=== PATIENT | female | born 1970 | race Caucasian/White ===

== ENCOUNTER 2023-09-17 01:06 | Inpatient (IN) | payer MEDICAID ==
[~2023-09-17] VITALS: Ht 170.2 cm; Wt 99.7 kg
[2023-09-17 01:32] LABS: BASOPHILS # (AUTO) 0.1 X10'3 (0-0.2); BASOPHILS % (AUTO) 0.3 % (0-1); EOSINOPHILS # (AUTO) 0.1 X10'3 (0-0.9); EOSINOPHILS % (AUTO) 0.3 % (0-6); HEMATOCRIT 41.7 % (35.0-45.0); HEMOGLOBIN 14.1 g/dl (12.0-16.0); LYMPHOCYTES # (AUTO) 3.8 X10'3 (1.1-4.8); LYMPHOCYTES % (AUTO) 21.7 % (21-51); MEAN CORPUSCULAR HEMOGLOBIN 28.3 PG (27.0-31.0); MEAN CORPUSCULAR HGB CONC 33.8 g/dL (33.0-36.5); MEAN CORPUSCULAR VOLUME 83.8 FL (78-98); MEAN PLATELET VOLUME 7.5 FL (7.4-10.4); MONOCYTES # (AUTO) 1.2 X10'3 (0-0.9); MONOCYTES % (AUTO) 6.7 % (2-12); NEUTROPHILS # (AUTO) 12.4 X10'3 (1.8-7.7); PLATELET COUNT 402 X10'3 (140-440); RED BLOOD COUNT 4.97 X10'6 (4.20-5.60); RED CELL DISTRIBUTION WIDTH 14.6 % (11.5-14.5); WHITE BLOOD COUNT 17.5 X10'3 (4.5-11.0)
[2023-09-17 01:43] LABS: APTT 32 SECONDS (22-32); PROTHROMBIN TIME 10.9 SECONDS (9.0-12.0)
[2023-09-17 01:51] LABS: ALBUMIN 3.7 G/DL (3.4-5.0); ANION GAP 12 (8-16); BLOOD UREA NITROGEN 7 MG/DL (7-18); BUN/CREATININE RATIO 9.5 (10.0-20.0); CALCIUM 8.9 MG/DL (8.5-10.1); CHLORIDE 102 MMOL/L (99-107); CREATININE 0.74 MG/DL (0.40-0.90); GLUCOSE 125 MG/DL (70-104); POTASSIUM 3.4 MMOL/L (3.5-5.1); PRO BRAIN NATRIURETIC PEPTIDE 3690 PG/ML (0-125); SODIUM 137 MMOL/L (135-145); TOTAL CARBON DIOXIDE 23.4 MMOL/L (24-32); eCRCL 86 ML/MIN; eGFR 82 ML/MIN
[2023-09-17] MEDS ORDERED: mag hydrox/Alum hydrox/simeth 30ml oral suspension PO PRN (02:30)
[2023-09-17] MEDS ORDERED: potassium Cl 40MEQ/1/2NS 520ml 520 ML IV PRN ×2 (02:30→13:55)
[2023-09-17] MEDS ORDERED: magnesium 4gm in 100ml NS 100 ML IV PRN ×2 (02:30→13:55)
[2023-09-17] MEDS ORDERED: morphine 2 MG/ML inj. syringe IV PRN (02:30)
[2023-09-17] MEDS ORDERED: potassium Cl 20 mEq SR tablet PO PRN ×2 (02:30)
[2023-09-17] MEDS ORDERED: magnesium Cl slow-release 64mg tablet PO PRN (02:30)
[2023-09-17] MEDS ORDERED: magnesium hydroxide 30ml (MOM) UD suspension PO PRN (02:30)
[2023-09-17] MEDS ORDERED: magnesium 2GM in 50ml NS 50 ML IV PRN ×2 (02:30→13:55)
[2023-09-17] MEDS: heparin 10,000 units/1 ML INJ IV ONE (02:40)
[2023-09-17] MEDS: heparin 25,000 UNIT/250ml bag 250 ML IV PRN (02:41)
[2023-09-17] MEDS: MESSAGE TO NURSING IV ONE ×4 (02:42→21:55)
[2023-09-17 02:47] LABS: HEMOGLOBIN A1C 5.5 % (4.5-6.2)
[2023-09-17] MEDS ORDERED: EST1T PO (05:47)
[2023-09-17] MEDS ORDERED: ERGO500093 PO (05:47)
[2023-09-17] MEDS ORDERED: PROG100C11 PO (05:47)
[2023-09-17] MEDS ORDERED: CALC600T35 (05:47)
[2023-09-17] MEDS ORDERED: MONT-40 PO (05:47)
[2023-09-17] MEDS ORDERED: ADAL40PE5 SQ (05:47)
[2023-09-17] MEDS ORDERED: BUDE10.2 PO (05:47)
[2023-09-17] MEDS ORDERED: LEVO5TAB13 (05:47)
[2023-09-17] MEDS ORDERED: ALBU10.7 (05:47)
[2023-09-17] MEDS ORDERED: PHEN15CA6 PO (05:47)
[2023-09-17] MEDS ORDERED: NAPR-1166 (05:47)
[2023-09-17] MEDS ORDERED: ATOR20TA66 PO (05:47)
[2023-09-17] MEDS ORDERED: FLUT15.87 (05:47)
[2023-09-17] MEDS: K and/or MAG REPLACEMENT MC SCH (08:00)
[2023-09-17] MEDS: aspirin 81mg tab.chew PO ONE (09:54)
[2023-09-17] MEDS: heparin 10,000 units/1 ML INJ IV PRN (09:54)
[2023-09-17] MEDS: carvedilol 6.25mg tablet PO SCH (09:54)
[2023-09-17] MEDS: atorvastatin 20mg tablet PO SCH (09:54)
[2023-09-17] MEDS: pantoprazole 40 MG vial IV SCH (09:59)
[2023-09-17] MEDS: montelukast 10mg tablet PO SCH (09:59)
[2023-09-17] MEDS ORDERED: ipratropium/albuterol 3ml nebule NEB PRN (10:20)
[2023-09-17] MEDS ORDERED: BUDESONIDE 180 MCG AER.POW.BA INH PRN (10:20)
[2023-09-17] MEDS ORDERED: LEVO5TAB13 PO (10:20)
[2023-09-17] MEDS ORDERED: ALBU8HFA INH (10:23)
[2023-09-17 11:00] VITALS: BP 139/70; PULSE 91; RESP 18; TEMP 98.1; O2SAT 99
[2023-09-17] MEDS: albuterol 2.5 MG/3 ML nebule NEB PRN (11:55)
[2023-09-17 11:57] VITALS: PULSE 73; RESP 17; O2SAT 100
[2023-09-17 12:04] VITALS: PULSE 78; RESP 16
[2023-09-17] MEDS: estradiol 1mg tablet PO SCH (13:03)
[2023-09-17] MEDS ORDERED: potassium CL 10mEq/100ml bag 100 ML IV PRN (13:55)
[2023-09-17] MEDS ORDERED: potassium Cl 40MEQ/270ML bag 250 ML IV PRN (13:55)
[2023-09-17] MEDS ORDERED: potassium Cl 20mEq/100mL bag 100 ML IV PRN (13:55)
[2023-09-17 15:00] VITALS: BP 135/70; PULSE 73; RESP 16; TEMP 97.5; O2SAT 99
[2023-09-17] MEDS: ondansetron/PF 4mg/2ml inj IV PRN (16:38)
[2023-09-17] MEDS: nitroGLYCERIN 0.4mg/hour patch TD SCH (16:42)
[2023-09-17] MEDS ORDERED: HYDR-3973 PO (17:46)
[2023-09-17 18:00] VITALS: BP 119/81; PULSE 101; RESP 20; TEMP 97.6; O2SAT 99
[2023-09-17] MEDS: Symbicort 160-4.5 Mcg Inhaler PO SCH (20:00)
[2023-09-17] MEDS: acetaminophen 325mg tablet PO PRN (20:46)
[2023-09-17] MEDS: potassium Cl 20 mEq SR tablet PO PRN (20:47)
[2023-09-17 22:00] VITALS: BP 125/86; PULSE 94; RESP 18; RESP 20; TEMP 96.7; O2SAT 99
[2023-09-18] VITALS (16 sets, daily range): BP systolic 98–141; BP diastolic 54–92; PULSE 74–97; RESP 12–22; TEMP 97.3–98.5; O2SAT 96–100
[2023-09-18 06:45] LABS: BASOPHILS # (AUTO) 0.2 X10'3 (0-0.2); BASOPHILS % (AUTO) 1.2 % (0-1); EOSINOPHILS # (AUTO) 0.3 X10'3 (0-0.9); EOSINOPHILS % (AUTO) 2.4 % (0-6); HEMATOCRIT 44.4 % (35.0-45.0); HEMOGLOBIN 14.7 g/dl (12.0-16.0); LYMPHOCYTES # (AUTO) 4.5 X10'3 (1.1-4.8); LYMPHOCYTES % (AUTO) 34.9 % (21-51); MEAN CORPUSCULAR HEMOGLOBIN 28.1 PG (27.0-31.0); MEAN CORPUSCULAR HGB CONC 33.1 g/dL (33.0-36.5); MEAN CORPUSCULAR VOLUME 84.9 FL (78-98); MEAN PLATELET VOLUME 8.7 FL (7.4-10.4); MONOCYTES # (AUTO) 1.2 X10'3 (0-0.9); MONOCYTES % (AUTO) 9.5 % (2-12); NEUTROPHILS # (AUTO) 6.8 X10'3 (1.8-7.7); PLATELET COUNT 423 X10'3 (140-440); RED BLOOD COUNT 5.23 X10'6 (4.20-5.60); RED CELL DISTRIBUTION WIDTH 14.9 % (11.5-14.5)
[2023-09-18 07:05] LABS: ALBUMIN 3.8 G/DL (3.4-5.0); ANION GAP 12 (8-16); BLOOD UREA NITROGEN 11 MG/DL (7-18); BUN/CREATININE RATIO 15.3 (10.0-20.0); CALCIUM 9.1 MG/DL (8.5-10.1); CHLORIDE 102 MMOL/L (99-107); CHOL/HDL RATIO 2.6 (0.00-4.99); CHOLESTEROL 191 MG/DL (0-200); CREATININE 0.72 MG/DL (0.40-0.90); GLUCOSE 97 MG/DL (70-104); HDL CHOLESTEROL 73 MG/DL (35-60); LDL CHOLESTEROL 93 MG/DL (50-100); POTASSIUM 3.9 MMOL/L (3.5-5.1); SODIUM 136 MMOL/L (135-145); TOTAL CARBON DIOXIDE 21.8 MMOL/L (24-32); TRIGLYCERIDES 155 MG/DL (20-135); eCRCL 88 ML/MIN; eGFR 85 ML/MIN
[2023-09-18] MEDS: MESSAGE TO NURSING IV ONE ×3 (07:45→15:52)
[2023-09-18] MEDS: LEVOCETIRIZINE DIHYDROCHLORIDE 5 MG PO SCH (08:00)
[2023-09-18] MEDS: progesterone, micronized 100mg capsule PO SCH (08:23)
[2023-09-18] MEDS: heparin 10,000 units/1 ML INJ IV PRN (08:34)
[2023-09-18] MEDS ORDERED: aminophylline inj. 0 ML IV ONE (09:27)
[2023-09-18] MEDS: regadenoson 0.4mg/5ml syringe IV PRN (09:29)
[2023-09-18] MEDS ORDERED: metoprolol tartrate 1mg/ml inj IV PRN (12:15)
[2023-09-18] MEDS ORDERED: nitroGLYCERIN 0.4mg SUBLingual tab SL PRN (12:15)
[2023-09-18] MEDS ORDERED: aminophylline 250mg/10ml inj. IV PRN (12:15)
[2023-09-18] MEDS ORDERED: MESSAGE TO NURSING IV ONE (15:20)
[2023-09-18] MEDS ORDERED: nitroGLYCERIN 0.4mg/hour patch TD SCH (16:00)
[2023-09-19] VITALS (21 sets, daily range): BP systolic 100–142; BP diastolic 49–81; PULSE 68–92; RESP 11–22; TEMP 96.6–97.7; O2SAT 95–99
[2023-09-19 06:00] LABS: BASOPHILS # (AUTO) 0.1 X10'3 (0-0.2); BASOPHILS % (AUTO) 1.1 % (0-1); EOSINOPHILS # (AUTO) 0.6 X10'3 (0-0.9); EOSINOPHILS % (AUTO) 7.3 % (0-6); HEMATOCRIT 43.4 % (35.0-45.0); HEMOGLOBIN 14.2 g/dl (12.0-16.0); LYMPHOCYTES # (AUTO) 3.1 X10'3 (1.1-4.8); LYMPHOCYTES % (AUTO) 36.2 % (21-51); MEAN CORPUSCULAR HEMOGLOBIN 28.1 PG (27.0-31.0); MEAN CORPUSCULAR HGB CONC 32.8 g/dL (33.0-36.5); MEAN CORPUSCULAR VOLUME 85.7 FL (78-98); MONOCYTES # (AUTO) 0.9 X10'3 (0-0.9); NEUTROPHILS # (AUTO) 3.8 X10'3 (1.8-7.7); NEUTROPHILS % (AUTO) 44.4 % (42-75); PLATELET COUNT 397 X10'3 (140-440); RED BLOOD COUNT 5.06 X10'6 (4.20-5.60); RED CELL DISTRIBUTION WIDTH 14.7 % (11.5-14.5); WHITE BLOOD COUNT 8.5 X10'3 (4.5-11.0)
[2023-09-19 06:10] LABS: ALBUMIN 3.3 G/DL (3.4-5.0); ANION GAP 10 (8-16); BLOOD UREA NITROGEN 10 MG/DL (7-18); BUN/CREATININE RATIO 13.2 (10.0-20.0); CHLORIDE 106 MMOL/L (99-107); CREATININE 0.76 MG/DL (0.40-0.90); GLUCOSE 98 MG/DL (70-104); POTASSIUM 3.8 MMOL/L (3.5-5.1); SODIUM 139 MMOL/L (135-145); TOTAL CARBON DIOXIDE 23.2 MMOL/L (24-32); eCRCL 83 ML/MIN; eGFR 80 ML/MIN
[2023-09-19] MEDS ORDERED: LIDOcaine 2% Viscous 15ml cup ONE (09:58)
[2023-09-19] MEDS ORDERED: fentaNYL/PF 50MCG/1 ML 2ML syringe ONE (11:08)
[2023-09-19] MEDS ORDERED: MIDAZolam 1 MG/ML 5ML VIAL ONE (11:08)
[2023-09-19] MEDS: pantoprazole 40 MG vial IV SCH (20:49)
[2023-09-20 02:00] VITALS: BP 113/60; PULSE 65; RESP 16; TEMP 97.1; O2SAT 98
[2023-09-20 06:31] LABS: BASOPHILS # (AUTO) 0.1 X10'3 (0-0.2); EOSINOPHILS # (AUTO) 0.6 X10'3 (0-0.9); HEMOGLOBIN 14.2 g/dl (12.0-16.0); LYMPHOCYTES # (AUTO) 3.3 X10'3 (1.1-4.8); MEAN PLATELET VOLUME 7.9 FL (7.4-10.4); NEUTROPHILS # (AUTO) 3.8 X10'3 (1.8-7.7)
[2023-09-20 06:33] LABS: EOSINOPHILS % (AUTO) 6.7 % (0-6); HEMATOCRIT 42.3 % (35.0-45.0); LYMPHOCYTES % (AUTO) 38.1 % (21-51); MEAN CORPUSCULAR HEMOGLOBIN 28.4 PG (27.0-31.0); MEAN CORPUSCULAR HGB CONC 33.5 g/dL (33.0-36.5); MEAN CORPUSCULAR VOLUME 84.8 FL (78-98); MONOCYTES # (AUTO) 0.9 X10'3 (0-0.9); MONOCYTES % (AUTO) 10.6 % (2-12); NEUTROPHILS % (AUTO) 43.6 % (42-75); PLATELET COUNT 385 X10'3 (140-440); RED BLOOD COUNT 4.98 X10'6 (4.20-5.60); RED CELL DISTRIBUTION WIDTH 14.9 % (11.5-14.5); WHITE BLOOD COUNT 8.7 X10'3 (4.5-11.0)
[2023-09-20 06:44] LABS: ALBUMIN 3.3 G/DL (3.4-5.0); ANION GAP 9 (8-16); BLOOD UREA NITROGEN 9 MG/DL (7-18); BUN/CREATININE RATIO 13.2 (10.0-20.0); CALCIUM 8.9 MG/DL (8.5-10.1); CHLORIDE 107 MMOL/L (99-107); CREATININE 0.68 MG/DL (0.40-0.90); GLUCOSE 98 MG/DL (70-104); POTASSIUM 3.9 MMOL/L (3.5-5.1); SODIUM 139 MMOL/L (135-145); TOTAL CARBON DIOXIDE 23.1 MMOL/L (24-32); eCRCL 93 ML/MIN; eGFR > 90 ML/MIN
[2023-09-20 07:21] VITALS: BP 123/71; PULSE 68; RESP 16; TEMP 98.6; O2SAT 98
[2023-09-20 08:00] VITALS: RESP 16; O2SAT 98
[2023-09-20 11:13] VITALS: BP 137/90; PULSE 82; RESP 16; TEMP 98; O2SAT 100
[2023-09-20 11:16] VITALS: PULSE 89; RESP 17; O2SAT 97
[2023-09-20] MEDS ORDERED: CARV6.253 PO (11:46)
[2023-09-20] MEDS ORDERED: PANT-47 PO (11:47)
[2023-09-20] MEDS ORDERED: ASPI-1265 PO (11:47)
== END 2023-09-20 15:40 | disposition home or self-care (01) | DRG 241 ==
LOC: ER 01:07 → ED HOLD 02:29 → PCU 3S 10:33
PROVIDERS: ADMIT Surgery Surgical Critical Care; ATTEND Family Medicine
PROC: 4A02XM4 Measurement of Cardiac Total Activity, External Approach (ICD-10-PCS; 2023-09-18)
PROC: 3E033HZ Introduction of Radioactive Substance into Peripheral Vein, Percutaneous Approach (ICD-10-PCS; 2023-09-18)
PROC: 0DB58ZX Excision of Esophagus, Via Natural or Artificial Opening Endoscopic, Diagnostic (ICD-10-PCS; principal; 2023-09-19)
PROC: 0DB68ZX Excision of Stomach, Via Natural or Artificial Opening Endoscopic, Diagnostic (ICD-10-PCS; 2023-09-19)
PROC: 0DB78ZX Excision of Stomach, Pylorus, Via Natural or Artificial Opening Endoscopic, Diagnostic (ICD-10-PCS; 2023-09-19)
DX: K29.70 Gastritis, unspecified, without bleeding (principal); I21.A1 Myocardial infarction type 2; K20.80 Other esophagitis without bleeding; K44.9 Diaphragmatic hernia without obstruction or gangrene; K25.9 Gastric ulcer, unspecified as acute or chronic, without hemorrhage or perforation; N95.1 Menopausal and female climacteric states; E66.9 Obesity, unspecified; E78.5 Hyperlipidemia, unspecified; J45.909 Unspecified asthma, uncomplicated; L30.9 Dermatitis, unspecified; R13.10 Dysphagia, unspecified; K22.89 Other specified disease of esophagus; L40.9 Psoriasis, unspecified; K29.80 Duodenitis without bleeding; Z87.891 Personal history of nicotine dependence; Z88.0 Allergy status to penicillin; Z91.048 Other nonmedicinal substance allergy status; Z88.8 Allergy status to other drugs, medicaments and biological substances; Z88.1 Allergy status to other antibiotic agents; Z68.34 Body mass index [BMI] 34.0-34.9, adult; Z63.4 Disappearance and death of family member
CPT/HCPCS: 36415; 43239; 71045; 78452; 80048; 80061; 83036; 83605; 83880; 84145; 84484; 85025; 85610; 85730; 92508; 92616; 93005; 93017; 93306; 94640; 94760; 99152; A4620; A9500; C9113; G0378; J0280; J1644; J2250; J2405; J2785; J3010; J7030